=== PATIENT | male | born 1985 | race Caucasian/White ===

== ENCOUNTER 2022-03-01 15:59 | Outpatient (CLI) | payer BC | END 2022-03-01 16:00 | disposition home or self-care (01) | LOC: CSHRAD 15:59 | PROVIDERS: ATTEND Physician Assistant | DX: M25.511 Pain in right shoulder (principal) ==

== ENCOUNTER 2022-08-19 09:07 | Outpatient (CLI) | payer BC ==
[2022-08-19] MEDS ORDERED: EPINEPHrine 1 MG/ML AMP ONE (09:22)
[2022-08-19] MEDS ORDERED: Lidocaine 1% PF 5 ML VIAL ONE (09:23)
[2022-08-19] MEDS ORDERED: Sodium Bicarbonate 2.5 MEQ/5 ML VIAL ONE (09:23)
[2022-08-19 09:57] VITALS: BP 137/85; TEMP 97.8
[2022-08-19] MEDS ORDERED: FLU VACC QS2022-23(6MOS UP)/PF 60 MCG/0.5 ML SYRINGE IM ONE (10:15)
[2022-08-19] MEDS ORDERED: Magnevist 469MG/ML 20 ML VIAL ONE (14:46)
[2022-08-19] MEDS ORDERED: Iopamidol 300 61% 50 ML VIAL FS ONE (14:50)
== END 2022-08-19 11:30 | disposition home or self-care (01) ==
LOC: CSHRAD 09:07
PROVIDERS: ATTEND Orthopaedic Surgery
DX: M25.511 Pain in right shoulder (principal)
CPT/HCPCS: 23350; A9579; J0171; Q9967